=== PATIENT | female | born 1970 | race Caucasian/White ===

== ENCOUNTER 2022-03-25 09:45 | Inpatient (IN) | payer MEDICAID, OTHER ==
[~2022-03-25] VITALS: Ht 157.5 cm; Wt 59.9 kg
[2022-03-25 10:36] LABS: COVID AG,FIA SOURCE NASOPHARYNGEAL
[2022-03-25 10:37] LABS: BASOPHILS % (AUTO) 0.6 % (0.0-2.0); EOSINOPHILS % (AUTO) 0.1 % (1.0-6.0); HEMATOCRIT 42.5 % (36-46); HEMOGLOBIN 14.6 g/dL (12.0-16.0); LYMPHOCYTES % (AUTO) 24.4 % (22.0-44.0); MEAN CORPUSCULAR HEMOGLOBIN 33.1 pg (26.0-34.0); MEAN CORPUSCULAR HGB CONC 34.4 G/dL (31.0-37.0); MEAN CORPUSCULAR VOLUME 96 fL (80-100); MONOCYTES # (AUTO) 0.3 K/uL (0.1-1.0); MONOCYTES % (AUTO) 7.3 % (2.0-9.0); NEUTROPHILS # (AUTO) 2.9 K/uL (1.8-7.7); NEUTROPHILS % (AUTO) 67.6 % (40.0-70.0); PLATELET COUNT (AUTO) 165 K/uL (150-450); RED BLOOD CELL COUNT(AUTO) 4.43 MIL/uL (4.00-5.20); RED CELL DISTRIBUTION WIDTH 12.6 % (11.5-14.5)
[2022-03-25 10:49] LABS: ANION GAP 16 mmol/L (8-16); CALCIUM, TOTAL 9.3 mg/dL (8.8-10.5); CARBON DIOXIDE 22 mmol/L (22-29); CHLORIDE 101 mmol/L (98-107); CREATININE 0.76 mg/dL (0.60-1.30); GLUCOSE,RANDOM 122 mg/dL (70-110); POTASSIUM 3.2 mmol/L (3.5-5.1); SODIUM SERUM 139 mmol/L (136-145); UREA NITROGEN, BLOOD 20 mg/dL (7-18)
[2022-03-25 10:55] LABS: ALANINE AMINOTRANSFERASE 25 U/L (12-78); ALBUMIN 4.3 g/dL (3.4-5.0); ALKALINE PHOSPHATASE 70 U/L (46-116); ASPARTATE AMINOTRANSFERASE 23 U/L (15-37); BILIRUBIN,TOTAL 0.8 mg/dL (0.1-1.0); GLOMERULAR FILTR. RATE CALC > 60 mL/min (>60); TOTAL PROTEIN, SERUM 7.8 g/dL (6.4-8.2)
[2022-03-25] MEDS ORDERED: HALOPERIDOL 5 MG TABLET PO ONE (11:45)
[2022-03-25] MEDS ORDERED: LORazepam 1 MG TABLET PO ONE (11:45)
[2022-03-25] MEDS ORDERED: ZOLPIDEM TARTRATE 10 MG TABLET PO PRN (13:15)
[2022-03-25 15:04] VITALS: BP 149/73
[2022-03-25 16:20] VITALS: BP 148/71
[2022-03-25] MEDS: POTASSIUM CHLORIDE 20 MEQ ER TABLET PO ONE ×3 (16:28→17:50)
[2022-03-26] MEDS ORDERED: IBUPROFEN 400 MG TABLET PO PRN (06:30)
[2022-03-26] MEDS ORDERED: ONDANSETRON HCL 4 MG TABLET PO PRN (06:30)
[2022-03-26] MEDS ORDERED: CloNIDine HCL 0.1 MG TABLET PO PRN (06:30)
[2022-03-26] MEDS ORDERED: MAG HYDROX/AL HYDROX/SIMETH ES 30 ML SUSPENSION UDCUP PO PRN (06:30)
[2022-03-26] MEDS ORDERED: LOPERAMIDE HCL 2 MG CAPSULE PO PRN (06:30)
[2022-03-26] MEDS ORDERED: ACETAMINOPHEN 325 MG TABLET PO PRN (06:30)
[2022-03-26] MEDS ORDERED: NICOTINE 14 MG/24 HOUR PATCH TD PRN (06:30)
[2022-03-26] MEDS ORDERED: PETROLATUM,WHITE 28 GM JELLY TP PRN (06:30)
[2022-03-26] MEDS ORDERED: ALBUTEROL SULFATE HFA 90 MCG/PUFF 8 GM INHALER IH PRN (06:30)
[2022-03-26] MEDS ORDERED: GuaiFENesin/D-METHORPHAN [SUGAR-FREE] 200-20MG/10 ML SYRUP UDCUP PO PRN (06:30)
[2022-03-26] MEDS ORDERED: DOCUSATE SODIUM 100 MG CAPSULE PO PRN (06:30)
[2022-03-26] MEDS ORDERED: MAGNESIUM HYDROXIDE SUSPENSION 30 ML UDCUP PO PRN (06:30)
[2022-03-26 08:00] VITALS: BP 122/64
[2022-03-26 16:29] VITALS: BP 137/63
[2022-03-26] MEDS: OLANZapine 5 MG TABLET PO SCH ×2 (17:00→17:55)
[2022-03-27 08:02] VITALS: BP 107/63
[2022-03-27] MEDS: OLANZapine 5 MG TABLET PO SCH ×2 (09:21→16:16)
[2022-03-27 16:00] VITALS: BP 116/67
[2022-03-28 08:00] VITALS: BP 109/63
[2022-03-28] MEDS: OLANZapine 5 MG TABLET PO SCH ×3 (09:00→19:02)
[2022-03-28 16:23] VITALS: BP 133/79
[2022-03-28] MEDS: HALOPERIDOL 5 MG TABLET PO PRN ×2 (18:56→19:01)
[2022-03-29 08:00] VITALS: BP 108/71
[2022-03-29] MEDS: OLANZapine 5 MG TABLET PO SCH ×2 (09:05→16:30)
[2022-03-29] MEDS: LORazepam 2 MG TABLET PO PRN (16:30)
[2022-03-29 22:05] LABS: APPEARANCE,URINE HAZY (CLEAR); BILIRUBIN,URINE NEGATIVE (NEGATIVE); GLUCOSE, URINE (UA) NEGATIVE (NEGATIVE); KETONES,URINE NEGATIVE (NEGATIVE); LEUKOCYTE ESTERASE ,URINE TRACE (NEGATIVE); NITRATE,URINE POSITIVE (NEGATIVE); OCCULT BLOOD,URINE TRACE (NEGATIVE); PH,URINE 6.5 (5.0-8.0); PROTEIN,URINE NEGATIVE (NEGATIVE); SPECIFIC GRAVITIY, URINE 1.016 (1.003-1.030); UROBILINOGEN,URINE <=1.0 mg/dL (<=1.0)
[2022-03-29 22:11] LABS: AMPHET/METH SCREEN,URINE NEGATIVE (NEGATIVE); BARBITURATE SCREEN, URINE NEGATIVE (NEGATIVE); BENZODIAZEPINES SCREEN,URINE NEGATIVE (NEGATIVE); CANNABINOID SCREEN,URINE NEGATIVE (NEGATIVE); COCAINE SCREEN,URINE NEGATIVE (NEGATIVE); METHADONE SCREEN, URINE NEGATIVE (NEGATIVE); OPIATE SCREEN,URINE NEGATIVE (NEGATIVE); PHENCYCLIDINE SCREEN,URINE NEGATIVE (NEGATIVE)
[2022-03-29 22:13] LABS: BACTERIA,URINE Many /HPF (None Seen); RBC,URINE 0-2 /HPF (0-2)
[2022-03-30] MEDS: CEPHALEXIN MONOHYDRATE 500 MG CAPSULE PO SCH ×3 (08:54→17:12)
[2022-03-30] MEDS: OLANZapine 5 MG TABLET PO SCH ×2 (08:54→17:12)
[2022-03-30 09:00] VITALS: BP 115/72
[2022-03-30 16:27] VITALS: BP 125/72
[2022-03-30] MEDS: LORazepam 2 MG TABLET PO PRN (17:12)
[2022-03-31 08:00] VITALS: BP 106/66
[2022-03-31] MEDS: OLANZapine 5 MG TABLET PO SCH ×2 (08:29→16:32)
[2022-03-31] MEDS: CEPHALEXIN MONOHYDRATE 500 MG CAPSULE PO SCH ×3 (08:29→16:32)
[2022-04-01 07:30] LABS: COVID AG,FIA SOURCE NASAL SWAB
[2022-04-01 08:00] VITALS: BP 116/68
[2022-04-01] MEDS: CEPHALEXIN MONOHYDRATE 500 MG CAPSULE PO SCH ×3 (09:00→17:17)
[2022-04-01] MEDS: OLANZapine 5 MG TABLET PO SCH ×2 (09:00→17:17)
[2022-04-01 16:00] VITALS: BP 101/67
[2022-04-02] MEDS: CEPHALEXIN MONOHYDRATE 500 MG CAPSULE PO SCH ×3 (09:00→16:45)
[2022-04-02] MEDS: OLANZapine 5 MG TABLET PO SCH ×2 (09:00→16:45)
[2022-04-02 09:46] VITALS: BP 112/68
[2022-04-02] MEDS: LORazepam 2 MG TABLET PO PRN (16:45)
[2022-04-02 16:49] VITALS: BP 127/80
[2022-04-03 08:00] VITALS: BP 104/67
[2022-04-03] MEDS: CEPHALEXIN MONOHYDRATE 500 MG CAPSULE PO SCH ×3 (09:34→16:42)
[2022-04-03] MEDS: OLANZapine 5 MG TABLET PO SCH ×2 (09:34→16:42)
[2022-04-03 16:22] VITALS: BP 98/57
[2022-04-04] MEDS: OLANZapine 5 MG TABLET PO SCH ×2 (08:57→16:38)
[2022-04-04 10:03] VITALS: BP 113/67
[2022-04-04 20:44] VITALS: BP 99/70
[2022-04-05] MEDS: OLANZapine 5 MG TABLET PO SCH ×2 (10:44→16:23)
[2022-04-05 17:00] VITALS: BP 114/62
[2022-04-06 08:37] VITALS: BP 104/70
[2022-04-06] MEDS: OLANZapine 5 MG TABLET PO SCH ×2 (09:06→16:48)
[2022-04-06 16:00] VITALS: BP 102/66
[2022-04-07 08:24] VITALS: BP 103/72
[2022-04-07] MEDS: OLANZapine 5 MG TABLET PO SCH ×2 (08:32→16:54)
[2022-04-07 16:20] VITALS: BP 101/75
[2022-04-08 07:06] LABS: COVID AG,FIA SOURCE NASAL SWAB
[2022-04-08 08:00] VITALS: BP 110/66
[2022-04-08] MEDS: OLANZapine 5 MG TABLET PO SCH ×2 (09:38→16:32)
[2022-04-09 08:00] VITALS: BP 149/100
[2022-04-09] MEDS: OLANZapine 5 MG TABLET PO SCH ×2 (08:24→16:27)
[2022-04-09 16:00] VITALS: BP 149/100
[2022-04-10 08:59] VITALS: BP 118/74
[2022-04-10] MEDS: OLANZapine 5 MG TABLET PO SCH ×2 (09:24→17:13)
[2022-04-10 16:13] VITALS: BP 104/69
[2022-04-11 08:43] VITALS: BP 120/63
[2022-04-11] MEDS: OLANZapine 5 MG TABLET PO SCH (09:04)
[2022-04-11] MEDS ORDERED: OLAN5TAB52 PO (09:50)
== END 2022-04-11 13:50 | disposition home or self-care (01) | DRG 750 ==
LOC: EMS 09:45 → 3EI 14:23
PROVIDERS: ADMIT Psychiatry & Neurology Child & Adolescent Psychiatry; ATTEND Psychiatry & Neurology Child & Adolescent Psychiatry
DX: F20.0 Paranoid schizophrenia (principal); Z91.14 Patient's other noncompliance with medication regimen; D72.819 Decreased white blood cell count, unspecified; Z20.822 Contact with and (suspected) exposure to COVID-19; E03.9 Hypothyroidism, unspecified; E87.6 Hypokalemia
CPT/HCPCS: 80053; 80307; 81001; 84132; 85025; 87086; 99285; G0480